=== PATIENT | female | born 1990 | race Caucasian/White ===

== ENCOUNTER 2017-03-23 18:19 | Emergency (ER) | payer MEDICAID ==
[2017-03-23] MEDS ORDERED: HYDROmorphone HCL 1 MG/ML DISP.SYRIN IV ONE (18:38)
--- NOTE | 2017-03-23 18:43 | ERNOTE ---
<Darshan Ny - Last Filed: 03/23/17 19:41> Abdominal HPI - Narrative Date of Service: 03/23/17 - General Chief Complaint: Abdominal Pain Time Seen by Provider: 03/23/17 18:29 Source: patient Exam Limitations: no limitations - Immun/Allergies/Home Medications Immunizatons: IMMUNIZATION HX Immunizations Up to Date Yes History of Influenza Vaccine Yes Allergies/Adverse Reactions: Allergies codeine Allergy (Verified 03/23/17 18:27) Hives Home Medications: HOME MEDICATIONS Vits96/Iron Fum/Folic [ S] 1 tab PO DAILY #0 tablet 03/29/14 [ Last Taken Unknown] Acetaminophen [Tylenol] 650 mg PO Q4H PRN 03/23/17 [Last Taken Unknown] HYDROcodone/ACETAMINOPHEN [[place] 5-325 Tablet] 1 - 2 tab PO Q6H PRN #20 tab [Last Taken Unknown] diphenhydrAMINE HCL [Benadryl] 25 mg PO Q6H PRN 03/23/17 [Last Taken Unknown] - History of Present Illness Narrative: 26 yo WF who is 33 weeks . Presents with 5 days of abdominal pain. Mentioned to her OB who recommended she see her PCP. Over the last 24 hours pain has increased. Awoke her last night crying and called her PCP this afternoon who advised her to come to the ED. Has no vaginal bleeding, discharge , or contractions. Denies nausea, vomiting, fever, chills. Timing: constant, getting worse Quality: moderate, severe Associated Symptoms: Present: denies symptoms Prior Abdominal Problems: Present: none Review of Systems - Review of Systems Constitutional: Present: no symptoms reported EYE: Present: no symptoms reported ENT: Present: no symptoms reported Respiratory: Present: cough - non-productive for several days. Cardiology: Present: no symptoms reported Gastrointestinal/Abdominal: Present: no symptoms reported Genitourinary: Present: no symptoms reported Musculoskeletal: Present: no symptoms reported Neurological: Present: no symptoms reported - Patient's Past Medical History Patient History - Medical: No pertinent hx Patient History - Cardiac/Respiratory: No pertinent hx Patient History - Cancer: No Hx of Cancer Patient History - Surgical Procedures: Orthopedic Patient History - Other: None LMP (females 10-50): LMP (Calendar): 07/18/16 - Social History Living Situations: home Abuse History: No History of abuse Psych History: No pertinent hx Smoking Status: Current every day smoker Alcohol Use: none Drug Use: none - Immunizations Immunizations Up to Date: Yes History of Influenza Vaccine: Yes Physical Exam - Physical Exam General Appearance: Present: wd/wn, alert, mild distress, anxious Head Exam: Present: normal inspection Eye Exam: PERRL: bilateral, EOMI: bilateral Ears, Nose, Throat: Present: normal ENT inspection Neck: Present: normal inspection Respiratory: Present: no respiratory distress, normal breath sounds. Absent: chest tenderness Cardiovascular/Chest: Present: regular rate, rhythm, systolic murmur Gastrointestinal/Abdominal: Present: tenderness, Siegel sign, other - RUQ point tenderness without rebound Back Exam: Present: normal inspection, no CVA tenderness Extremity Exam: Present: normal inspection, non-tender, normal range of motion, no edema Neurological Exam: Present: alert, oriented, normal mood/affect, no motor/ sensory deficits ED Progress - Results and Orders Patient's Lab Results:: I have reviewed the patient's lab results. - Vital Signs Patient's Vital Signs:: I have reviewed the patient's vital signs. Vital Signs: Vital Signs 03/23/17 03/23/17 18:21 18:34 Temperature 36.6 C 36.6 C Pulse Rate 95 95 Respiratory 18 18 Rate Blood Pressure 107/58 107/58 O2 Sat by Pulse 99 Oximetry - Progress/Reassessment Chief Complaint: Abdominal Pain Progress:: Improved - Transfer of Care Physician Sign Out: Darshan Ny Receiving Physician: Ari Henderson Pending Results: X-ray results Departure - Departure Clinical Impression: Abdominal pain Disposition: Home self-care Condition: Stable Additional Instructions: As we discussed, your ultrasound is normal. I suspect that he has some mild irritation of her gallbladder. Certainly a pulled muscle could be going on as well. Try to avoid fatty foods. Take the prescribed medicine to help with severe pain. No driving while taking this medicine. 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 [facility] [employer]ING MACHINE OPERATOR doctor and set up a follow-up appointment. Certainly if he develop new or worsening symptoms she should return to the ER. He continues to work excuse for tomorrow if you feel like it. If you get itchy or develop a rash with taking hydrocodone you can take a half of a pill or try some Benadryl beforehand. Referrals: Ana Ballard ARNP [Primary Care Provider] - Prescriptions: HYDROcodone/ACETAMINOPHEN [[place] 5-325 Tablet] 1 - 2 tab PO Q6H PRN #20 tab PRN Reason: Pain <Ari Henderson - Last Filed: 03/23/17 21:36> Abdominal HPI - Immun/Allergies/Home Medications Immunizatons: IMMUNIZATION HX Immunizations Up to Date Yes History of Influenza Vaccine Yes ED Progress - Vital Signs Vital Signs: Vital Signs 03/23/17 03/23/17 03/23/17 18:21 18:34 19:00 Temperature 36.6 C 36.6 C Pulse Rate 95 95 100 Respiratory 18 18 18 Rate Blood Pressure 107/58 107/58 112/68 O2 Sat by Pulse 99 96 Oximetry 03/23/17 03/23/17 03/23/17 19:56 20:37 21:13 Temperature Pulse Rate 93 82 84 Respiratory 18 18 18 Rate Blood Pressure 114/73 111/66 101/64 O2 Sat by Pulse 97 97 97 Oximetry Plan - Plan Plan: I have assumed care of this patient. We are waiting for the ultrasound. Ultrasound demonstrates a tiny polyp incidentally noted. No pericholecystic fluid. No gallbladder wall thickening. I suspect the elevated white count is coming from the patient's . This certainly could be early cholecystitis. I made her aware of symptoms for which to be concerned. It could also be a pulled muscle from coughing several weeks ago. She is aware that she needs to follow up with her KNURLING MACHINE OPERATOR. She will return for new or worrisome symptoms. I'm giving her a small supply, 20 pills, of pain medicine. She is aware that taken as prescribed this will pose no danger to her child.
[2017-03-23] MEDS ORDERED: HYDROmorphone HCL 1 MG/ML DISP.SYRIN ONE (18:51)
[2017-03-23 19:02] LABS: Hematocrit 35.5 % (37.0-47.0); Mean Cell Volume 86.6 fl (78-100); Mean Corpuscular Hemoglobin 29.3 pg (27-31); Mean Corpuscular Hgb Conc 33.8 g/dl (32-36); Mean Platelet Volume 10.5 fl (6.0-9.5); Platelet Count 264 K/mm3 (150-450); Red Cell Distribution Width 12.4 % (11.5-14.0); White Blood Count 18.1 K/mm3 (4.0-10.5)
[2017-03-23 19:04] LABS: Total Cells Counted 100
[2017-03-23 19:09] LABS: Urine Bilirubin Negative (NEGATIVE); Urine Blood Negative /ul (NEGATIVE); Urine Ketone Negative (NEGATIVE); Urine Nitrite Negative (NEGATIVE); Urine Protein Negative (NEGATIVE); Urine Specific Gravity 1.025 SP.GR. (1.005-1.010); Urine Urobilinogen Normal (NORMAL)
[2017-03-23 19:10] LABS: Albumin * 2.8 gm/dl (3.4-5.0); Anion Gap 13.1 mmol/L (6.8-13.8); BUN/Creatinine Ratio 21.2 (9.0-21.6); Bilirubin, Total 0.2 mg/dL (0.0-1.1); Ca. Corrected For Albumin 9.5 mg/dL (8.4-10.2); Calcium * 8.9 mg/dL (7.9-10.9); Carbon Dioxide 25.6 mmol/L (24-32.6); Potassium 3.7 mmol/L (3.4-4.6); Total Protein 6.7 gm/dL (6.2-8.2)
[2017-03-23 19:19] LABS: Urine Appearance Slightly Cloudy; Urine Bacteria 1+; Urine Color Yellow; Urine Mucus Few - 1+; Urine RBC None Seen /hpf (0-5); Urine WBC TRACE /hpf (0-5)
[2017-03-23 19:24] LABS: Atypical (Reactive) Lymph 2 % (0-2); Band 3 % (0-2.0); Eosinophil 1 % (0-3); Immature Granulocyte 4 (0-1); Lymphocyte 27 % (20-51); Monocyte 6 % (0-9); Neutrophil 57 % (42-75); Neutrophil # 10.3 K/mm3 (1.3-6.0)
[2017-03-23 19:25] LABS: Dohle Bodies 1+; Platelet Estimate Normal (NORMAL); RBC Morphology Normal (NORMAL)
[2017-03-23] MEDS ORDERED: ONDANSETRON HCL/PF 2 MG/ML VIAL ONE (20:40)
[2017-03-23] MEDS ORDERED: ONDANSETRON HCL/PF 2 MG/ML VIAL IV ONE (20:40)
[2017-03-23 21:14] VITALS: BP 101/64
== END 2017-03-23 21:41 | disposition home or self-care (01) ==
LOC: ER 18:19
DX: R10.9 Unspecified abdominal pain (principal); F17.200 Nicotine dependence, unspecified, uncomplicated; Z33.1 Pregnant state, incidental; Z3A.33 33 weeks gestation of pregnancy
CPT/HCPCS: 36415; 76705; 80053; 81001; 83690; 85025; 96374; 96375; 99284; J2405

== ENCOUNTER 2017-05-03 07:32 | Inpatient (IN) | payer MEDICAID ==
[2017-05-03] MEDS ORDERED: RINGER'S SOLUTION,LACTATED 1,000 ML IV ONE (07:59)
[2017-05-03] MEDS ORDERED: PENICILLIN G POTASSIUM 5 MILLIONUNT in DEXTROSE 5 % IN WATER 100 ML IV ONE ×2 (07:59)
[2017-05-03] MEDS ORDERED: LIDOCAINE HCL 50 ML VIAL PERI PRN (07:59)
[2017-05-03] MEDS ORDERED: OXYTOCIN/DEXTROSE 5%-WATER 30 UNITS/500 ML BAG IV ONE ×2 (07:59→17:09)
[2017-05-03] MEDS ORDERED: DEXTROSE 5%-LACTATED RINGERS 1,000 ML IV PRN (07:59)
[2017-05-03] MEDS: RINGER'S SOLUTION,LACTATED 1,000 ML IV PRN ×2 (08:49→11:16)
--- NOTE | 2017-05-03 10:05 | PN ---
Progess Note - Interim Narrative: 05/03/17 10:03 Subjective-feeling contractions more and more Objective- SVE- 2/80/-3 FHTs- 140's, mod ten, no decels, +accels [place]- q2 min Assessment and plan- Labor- spontaneous GBS status- positive, s/p pcn x1 Continue current plan of care.
[2017-05-03] MEDS ORDERED: NALOXONE HCL 1 MG/1 ML SYRG IV PRN (10:28)
[2017-05-03] MEDS ORDERED: ONDANSETRON HCL/PF 2 MG/ML VIAL IV PRN (10:28)
[2017-05-03] MEDS ORDERED: BUPIVACAINE HCL/0.9 % NACL/PF 250 ML EP PRN (10:28)
[2017-05-03] MEDS ORDERED: BUPIVACAINE HCL/PF 30 ML VIAL EP SCH (10:30)
--- NOTE | 2017-05-03 11:15 | OR ---
Anesthesia Procedure Note - Anesthesia Procedure Note Date of Service: 05/03/17 Narrative: Vital Signs - Last Taken Temp 36.4 C L 05/03/17 10:51 Pulse 79 05/03/17 10:51 Resp 18 05/03/17 10:51 BP 113/68 05/03/17 10:51 Pulse Ox 99 05/03/17 10:51 05/03/17 11:14 ANESTHESIA PROCEDURE NOTE Date of Procedure: 05/03/2017. Time of procedure: 1055. Performed by: Gurjit Mckeon CRNA Line Pilot: None. Preprocedure diagnosis: Active labor. Post procedure diagnosis: Same. Procedure: Insertion of labor epidural. Indications: The patient is a 26 -year-old female in active labor requesting labor epidural for pain management. Findings: See below. Details of the procedure: The patient was placed in a sitting position. DuraPrep as well as Betadine swabs X3 was applied to the patient's back. Patient was then draped in a sterile fashion. Lidocaine 1% was infiltrated to the skin and subcutaneous tissues at the level of the L3-4 interspace. The epidural space was identified using a 18-gauge Tuohy needle with loss-of- resistance technique. Epidural catheter was inserted to a depth of 9 centimeters at skin. Negative test dose was elicited using 3 mL of 1.5% preservative-free lidocaine plus epinephrine 1 200,000. The epidural catheter was then taped and secured in place. A loading dose of 8 mL of 0.25% preservative-free bupivacaine was administered to the epidural catheter after negative aspiration for blood and CSF. EBL: Minimal. Fluids: N/A. Specimen: N/A. Post procedure condition: The patient tolerated the procedure well. No complications were noted. Thank you for this consultation. Gurjit Mckeon CRNA
[2017-05-03] MEDS ORDERED: PENICILLIN G POTASSIUM 2.5 MILLIONUNT in DEXTROSE 5 % IN WATER 100 ML IV SCH ×2 (12:00)
--- NOTE | 2017-05-03 13:02 | PN ---
Progess Note - Interim Narrative: 05/03/17 13:01 subjective-feeling pressure with contractions, comfortable with the epidural Objective- SVE- 5-6/80/-3, forbag ruptured with exam FHTs- 140's, mod ten, no decels, +accels [place]- q4 min Assessment and plan- Labor- spontaneous, augment with pitocin GBS status- positive, s/p pcn x2 Continue current plan of care.
--- NOTE | 2017-05-03 16:07 | OR ---
Operative Report - Dictated Report Narrative: Spontaneous Vaginal Delivery Viable female with APGARS of 8 and 9. Delivered at 1652. Presentation was ANNIE. A nuchal cord was reduced after delivery of the head. The anterior and posterior shoulder delivered without difficulty followed by the remainder of the baby. Baby was placed on the maternal abdomen, dried and stimulated. Cord was clampped and cut after 60 seconds. Weight: 7-7.8 or 3397grams Placenta was delivered spontaneously and intact. left paraurethral 1st degree laceration, hemostatic without repair and right paraurethral abrasion. Estimated blood loss: 150 ml Mother and baby tolerated delivery well. History for Definition: * The number of deliveries resulting in a live the patient experienced prior to current hospitalization * The previous delivery of live twins or any live multiple gestation is considered one live event. *If primagravida or nulliparous is documented select zero for the number of previous live births. Live Events: 1
[2017-05-03] MEDS ORDERED: BISACODYL 10 MG SUPP.RECT RC PRN (17:09)
[2017-05-03] MEDS ORDERED: SENNOSIDES 8.6 MG TABLET PO PRN (17:09)
[2017-05-03] MEDS ORDERED: GLYCERIN/WITCH HAZEL LEAF 40 APPL BOX TP PRN (17:09)
[2017-05-03] MEDS ORDERED: BENZOCAINE/MENTHOL 81 SPRAY CAN TP PRN (17:09)
[2017-05-03] MEDS ORDERED: HYDROCORTISONE 30 APPL TUBE TP PRN (17:09)
[2017-05-03] MEDS: IBUPROFEN 800 MG TABLET PO PRN (20:54)
[2017-05-03] MEDS: DOCUSATE SODIUM 100 MG CAPSULE PO SCH (20:55)
[2017-05-03] MEDS: FAMOTIDINE 20 MG TABLET PO SCH (20:55)
[2017-05-03] MEDS: ACETAMINOPHEN 500 MG TABLET PO PRN (20:56)
[2017-05-04] MEDS: IBUPROFEN 800 MG TABLET PO PRN ×4 (03:42→21:31)
[2017-05-04] MEDS: ACETAMINOPHEN 500 MG TABLET PO PRN ×2 (06:33→18:45)
--- NOTE | 2017-05-04 09:00 | PN ---
Progess Note - Interim Narrative: 05/04/17 08:59 progress note Subjective: The patient is doing well. She is ambulating, voiding, tolerating by mouth. She has minimal pain and moderate lochia. At times she notices a gush of blood. Denies lightheadedness, dizziness with ambulation, shortness of breath. She denies passing any blood clots. Objective: General: No acute distress Abdomen: Soft, nontender, fundus is firm just below the umbilicus Extremities: minimal edema, nontender to palpation Assessment and plan: day 1 Feeding: Breast Pain: Controlled with by mouth medication Routine care.
[2017-05-04] MEDS: DOCUSATE SODIUM 100 MG CAPSULE PO SCH ×2 (09:22→21:31)
[2017-05-04] MEDS: FAMOTIDINE 20 MG TABLET PO SCH ×2 (11:53→22:15)
[2017-05-04] MEDS: NEOMYCIN/BACITRACIN/POLYMYXINB 15 APPL TUBE TP SCH ×3 (14:58→22:15)
[2017-05-04] MEDS ORDERED: MISOPROSTOL 200 MCG TABLET PO ONE (15:10)
[2017-05-05] MEDS: ACETAMINOPHEN 500 MG TABLET PO PRN ×2 (03:17→10:34)
[2017-05-05] MEDS: IBUPROFEN 800 MG TABLET PO PRN (07:00)
[2017-05-05] MEDS ORDERED: FLU VACC QS2017-18(6MOS UP)/PF 60 MCG/0.5 ML SYRINGE IM ONE (08:18)
[2017-05-05] MEDS ORDERED: MAGNESIUM HYDROXIDE 30 ML UDC PO ONE (09:06)
--- NOTE | 2017-05-05 09:10 | PN ---
Progess Note - Interim Narrative: 05/05/17 09:09 progress note Subjective: The patient is doing well. She is ambulating, voiding, tolerating by mouth. She has minimal pain and moderate lochia. Bleeding has slowed down considerably but now c/o hemorroids Objective: General: No acute distress Abdomen: Soft, nontender, fundus is firm just below the umbilicus Extremities: minimal edema, nontender to palpation Assessment and plan: day 1 Feeding: Breast Pain: Controlled with by mouth medication BC: OCPs HEmorroids: discussed care Routine care.
[2017-05-05] MEDS: FAMOTIDINE 20 MG TABLET PO SCH (09:52)
[2017-05-05] MEDS: DOCUSATE SODIUM 100 MG CAPSULE PO SCH (09:52)
[2017-05-05] MEDS: NEOMYCIN/BACITRACIN/POLYMYXINB 15 APPL TUBE TP SCH ×2 (09:55→13:30)
[2017-05-05 11:37] VITALS: BP 113/72
== END 2017-05-05 13:40 | disposition home or self-care (01) | DRG 775 ==
LOC: OBCLINIC 07:32 → OB 07:54
PROVIDERS: ADMIT Obstetrics & Gynecology Gynecologic Oncology; ATTEND Obstetrics & Gynecology Gynecologic Oncology
PROC: 10E0XZZ Delivery of Products of Conception, External Approach (ICD-10-PCS; principal; 2017-05-03)
PROC: 4A1HXCZ Monitoring of Products of Conception, Cardiac Rate, External Approach (ICD-10-PCS; 2017-05-03)
PROC: 10907ZC Drainage of Amniotic Fluid, Therapeutic from Products of Conception, Via Natural or Artificial Opening (ICD-10-PCS; 2017-05-03)
PROC: 00HU33Z Insertion of Infusion Device into Spinal Canal, Percutaneous Approach (ICD-10-PCS; 2017-05-03)
DX: O99.824 Streptococcus B carrier state complicating childbirth (principal); O69.81X0 Labor and delivery complicated by cord around neck, without compression, not applicable or unspecified; O70.0 First degree perineal laceration during delivery; Z23 Encounter for immunization; Z3A.39 39 weeks gestation of pregnancy; Z37.0 Single live birth
CPT/HCPCS: 59025; 90686; G0008